=== PATIENT | male | born 1990 | race Caucasian/White ===

== ENCOUNTER 2023-08-29 15:48 | Emergency (ER) | payer SELFPAY ==
[2023-08-29 19:42] LABS: SARS-CoV-2 NAA Rapid Test Not Detected (NotDetected)
== END 2023-08-29 20:00 | disposition home or self-care (01) ==
LOC: ERS 15:48
DX: J10.1 Influenza due to other identified influenza virus with other respiratory manifestations (principal); F17.290 Nicotine dependence, other tobacco product, uncomplicated
CPT/HCPCS: 99283

== ENCOUNTER 2024-01-18 03:44 | Observation (INO) | payer BC ==
[2024-01-18] MEDS ORDERED: Lidocaine 1% w/Epinephrine 1:100K 20 ML VIAL ONE (04:40)
[2024-01-18] MEDS ORDERED: Morphine 4 MG/ML VIAL ONE (04:40)
[2024-01-18] MEDS ORDERED: Ondansetron PF 4 MG/2 ML Vial ONE ×2 (04:40→13:22)
[2024-01-18] MEDS ORDERED: CEFAZOLIN 2 GM VIAL ONE ×2 (04:40→13:19)
[2024-01-18] MEDS ORDERED: Boostrix 0.5 ML (Tdap) VIAL (>/=7 yrs of age) ONE (04:41)
[2024-01-18] MEDS ORDERED: Sodium Chloride 0.9% 100 ML ONE ×3 (04:43→13:27)
[2024-01-18] MEDS ORDERED: Cyclobenzaprine 10 MG TAB PO PRN (06:04)
[2024-01-18 06:55] LABS: #Basophils 0.04 10x3/uL (0.0-0.2); %Basophils 0.6 % (0.0-1.0); %Eosinophils 1.7 % (0.0-10.0); %Lymphocytes 15.6 % (21.0-51.0); %Monocytes 9.6 % (0.0-10.0); %Neutrophils 72.2 % (42.0-75.0); Hematocrit 40.9 % (42.0-52.0); Hemoglobin 13.7 g/dL (14.0-18.0); Mean Corpuscular HGB CONC 33.5 g/dL (32.0-36.0); Mean Corpuscular Volume 89.5 fL (78.0-98.0); Mean Platelet Volume 9.3 fL (7.4-10.4); Platelet Count 210 10x3/uL (130-400); Red Blood Cell (RBC) Count 4.57 mill/uL (4.70-6.10)
[2024-01-18 07:20] LABS: ALT (SGPT) 15 U/L (8-55); AST (SGOT) 21 U/L (5-34); Albumin 3.8 g/dL (3.5-5.0); Alkaline Phosphatase 53 U/L (40-110); Anion Gap 16 mmol/L (10-20); BUN (Urea Nitrogen) 15 mg/dL (8.9-20.6); Bilirubin, Direct 0.2 mg/dL (0.1-0.3); Calc. Creatinine Clearance 0 mL/min (70-130); Carbon Dioxide 23 mmol/L (22-29); Chloride 103 mmol/L (98-107); Estimated GFR 91; Glucose 93 mg/dL (70-105); Potassium 3.6 mmol/L (3.5-5.1); Protein, Total 7.1 g/dL (6.0-8.3); Sodium 138 mmol/L (136-145)
[2024-01-18 07:23] LABS: Prothrombin Time 13.1 sec (12.0-14.7)
[2024-01-18 07:24] LABS: PTT 35.7 sec (22.9-36.1)
[2024-01-18] MEDS: Sodium Chloride 0.9% 1,000 ML IV SCH (09:35)
[2024-01-18] MEDS: Gentamicin Sulfate 80 MG in Premix 1 BAG IVPB SCH ×3 (09:35→22:51)
[2024-01-18 09:57] VITALS: BMI 23.7
[2024-01-18] MEDS: traMADol HCl 50 MG TAB PO PRN (10:41)
[2024-01-18] MEDS: Famotidine/PF 20 mg/2ml Vial SLOW IVP SCH (10:41)
[2024-01-18 12:00] LABS: Bilirubin, Total 0.5 mg/dL (0.2-1.2); Calcium 8.9 mg/dL (7.8-10.44)
[2024-01-18] MEDS: traMADol HCl 50 MG TAB PO SCH (12:48)
[2024-01-18] MEDS: Acetaminophen 325 MG TAB PO SCH (12:48)
[2024-01-18] MEDS ORDERED: fentaNYL PF 100 MCG/2 ML SYRINGE ONE (13:21)
[2024-01-18] MEDS ORDERED: Midazolam HCl 2 mg/2 ml Vial ONE (13:21)
[2024-01-18] MEDS ORDERED: PROPOFOL 20 ML ONE (13:21)
[2024-01-18] MEDS ORDERED: Lidocaine 1% PF 5 ML VIAL ONE (13:22)
[2024-01-18] MEDS ORDERED: Rocuronium Bromide 10 MG/ML (10ML VIAL) ONE (13:22)
[2024-01-18] MEDS ORDERED: SUGAMMADEX SODIUM 200 MG/2 ML VIAL ONE (13:22)
[2024-01-18] MEDS ORDERED: Dexamethasone 4 mg/ml Vial ONE (13:22)
[2024-01-18] MEDS ORDERED: Gentamicin 80 MG/2 ML VIAL ONE (13:27)
[2024-01-18] MEDS ORDERED: Bupivacaine PF 0.5% 30 ML VIAL ONE (15:04)
[2024-01-18] MEDS ORDERED: Bacitracin Zinc Ointment 30 gm TUBE ONE (15:04)
[2024-01-18] MEDS ORDERED: HYDROcodone/Acetaminophen 5/325 mg Tablet PO PRN (16:41)
[2024-01-18] MEDS ORDERED: Acetaminophen/Codeine 30-300mg Tablet PO PRN (16:41)
[2024-01-18] MEDS ORDERED: Meperidine HCl/PF 25 MG (1 mL) VIAL IM PRN (16:43)
[2024-01-18] MEDS ORDERED: Ketorolac Tromethamine 30 MG (1 mL) VIAL IVP PRN (16:43)
[2024-01-18] MEDS ORDERED: Communication Order-Pharmacy FS SCH (16:45)
[2024-01-18] MEDS: Morphine 4 MG/ML VIAL SLOW IVP PRN (18:06)
[2024-01-18] MEDS: Ondansetron PF 4 MG/2 ML Vial IVP PRN (19:45)
[2024-01-18] MEDS: Aspirin 81 mg Enteric Coated Tablet PO SCH (21:08)
[2024-01-18] MEDS: CEFAZOLIN 2 GM in Sodium Chloride 0.9% 100 ML IVPB SCH (21:08)
[2024-01-18] MEDS ORDERED: Ondansetron ORAL SOLN. 4 MG/5 ML UDCUP PO PRN (21:17)
[2024-01-18] MEDS: TETANUS, DIPHTHERIA TOX,ADULT (TDVAX) 0.5 ML VIAL IM ONE (22:12)
[2024-01-18] MEDS: Scopolamine 1 mg/72 hour Patch TD SCH (22:51)
[2024-01-19 05:33] LABS: #Basophils 0.03 10x3/uL (0.0-0.2); #Eosinphils Less than 0.03 10x3/uL (0.0-0.7); %Basophils 0.3 % (0.0-1.0); %Eosinophils 0.2 % (0.0-10.0); %Lymphocytes 7.9 % (21.0-51.0); %Monocytes 9.1 % (0.0-10.0); %Neutrophils 82.2 % (42.0-75.0); Hematocrit 40.6 % (42.0-52.0); Hemoglobin 13.6 g/dL (14.0-18.0); Mean Corpuscular HGB CONC 33.5 g/dL (32.0-36.0); Mean Corpuscular Hemoglobin 29.8 pg (27.0-31.0); Mean Platelet Volume 9.7 fL (7.4-10.4); Platelet Count 233 10x3/uL (130-400); RBC Distribution Width 12.1 % (11.5-14.5); Red Blood Cell (RBC) Count 4.56 mill/uL (4.70-6.10)
[2024-01-19] MEDS: traMADol HCl 50 MG TAB PO PRN (07:33)
[2024-01-19] MEDS: Promethazine HCl 25 MG in Sodium Chloride 0.9% 50 ML IVPB PRN (07:40)
[2024-01-19 14:17] VITALS: BP 123/70; TEMP 98.7
== END 2024-01-19 14:50 | disposition home or self-care (01) ==
LOC: ERS 03:44 → SURG A 06:06 → INTOOBSV 06:06
PROVIDERS: ADMIT Surgery; ATTEND Surgery
PROC: 0KQ90ZZ Repair Right Lower Arm and Wrist Muscle, Open Approach (ICD-10-PCS; principal; 2024-01-19)
DX: S61.511A Laceration without foreign body of right wrist, initial encounter (principal); I10 Essential (primary) hypertension; W25.XXXA Contact with sharp glass, initial encounter; Z79.899 Other long term (current) drug therapy
CPT/HCPCS: 36415; 80048; 80076; 85025; 85610; 85730; 86850; 86900; 86901; 90715; J0665; J1100; J1580; J2250; J2270; J2405; J2550; J2704; J3490; J7050; S0028